=== PATIENT | male | born 1960 | race Two or more races ===

== ENCOUNTER → 2020-12-12 08:00 | Outpatient (CLI) | payer OTHER ==
[~2020-12-12 08:00] MED LIST: CRESTOR5 MG PO; NORVASC5 MG PO; ZYLOPRIM300 MG PO
== END | disposition home or self-care (01) ==
LOC: ADM 07:45 → LAB 08:00 → CIR.AMB 12-18 07:00 → EDSTATUS 12-18 07:45
PROVIDERS: ATTEND Orthopaedic Surgery
DX: S46.121A Laceration of muscle, fascia and tendon of long head of biceps, right arm, initial encounter (principal); U07.1 COVID-19; I10 Essential (primary) hypertension

== ENCOUNTER 2021-12-02 11:12 | Outpatient (CLI) | payer OTHER | END 2021-12-02 11:21 | disposition home or self-care (01) | LOC: LAB 11:12 | PROVIDERS: ATTEND Urology | DX: R97.20 Elevated prostate specific antigen [PSA] (principal) ==

== ENCOUNTER 2022-02-26 07:29 | Outpatient (CLI) | payer OTHER | END 2022-02-26 07:40 | disposition home or self-care (01) | LOC: SONOGRAMA 07:29 | PROVIDERS: ATTEND Urology | DX: C61 Malignant neoplasm of prostate (principal); N42.31 Prostatic intraepithelial neoplasia; R97.20 Elevated prostate specific antigen [PSA] ==